=== PATIENT | male | born 1960 | race Caucasian/White ===

== ENCOUNTER → 2017-10-25 | Outpatient (CLI) | payer OTHER ==
[~2017-10-25] MED LIST: MOME100A INH; MULT-506 PO; PANT40TA PO; XRL20 PO
--- NOTE | 2017-10-25 10:43 | DIAGNOSTIC IMAGING REPORT ---
MRI LUMBAR SPINE W/O CONTRAST CLINICAL HISTORY: Low back pain LEG TINGLING TECHNIQUE: Sagittal and axial T1, T2 and STIR images were obtained. COMPARISON STUDY: No previous studies for comparison. OBSERVATIONS: The vertebral bodies and posterior elements appear intact. There is no abnormal bony signal present to suggest a marrow replacement process. L1-2: No disc protrusions or extrusions. No evidence of spinal canal or neural foraminal compromise. L2-3: No disc protrusions or extrusions. No evidence of spinal canal or neural foraminal compromise. L3-4: There is a tiny left foraminal disc protrusion. There is no spinal stenosis. There is minor left-sided foraminal narrowing. L4-5: There is a small to moderate moderate central and left-sided disc protrusion. There is secondary effacement of the anterior thecal sac. There is no significant foraminal narrowing. L5-S1: There is a small central disc protrusion. There is no significant spinal or foraminal stenosis. There is abundant epidural fat present. The conus medullaris and cauda equina appear normal. IMPRESSION: 1. Tiny left-sided foraminal disc protrusion at the L3-4 level 2. Small to moderate central left-sided disc protrusion at the L4-5 level with secondary mild spinal stenosis 3. Small central disc protrusion at the L5-S1 level. Electronically signed by: Hiram Shah M.D. 10/25/2017 10:41 AM Dictated Date/Time: 10/25/2017 10:37 AM
== END | disposition home or self-care (01) ==
LOC: C.MRIBC 09:52
PROVIDERS: ATTEND Physician Assistant Medical
DX: M51.16 Intervertebral disc disorders with radiculopathy, lumbar region (principal)